=== PATIENT | male | born 1995 | race African-American/Black ===

== ENCOUNTER 2018-09-29 02:12 | Emergency (ER) | payer SELFPAY ==
[~2018-09-29] VITALS: Ht 180.3 cm; Wt 113.4 kg
--- NOTE | 2018-09-29 02:29 | Emergency Room Report ---
History of Present Illness General Chief Complaint: Eye Problems Source: Patient Present Illness HPI Patient is a 23-year-old male presents after increased left eye redness. Patient had onset of symptoms this morning. He denies any recent trauma. He denies any visual changes. He reports of increased tearing as well as increased crusting to his eye. He denies any contact lens use. He denies any other current locations of discomfort. He denies any sore throat or cough. He had not been vomiting or having diarrhea. Allergies: Coded Allergies: No Known Allergies (Unverified , 09/29/18) Patient History Past Medical History: see triage record Reviewed Nursing Documentation: PMH: Agreed; PSxH: Agreed Nursing Documentation-PMH Past Medical History: No Stated History Review of Systems All Other Systems: negative except mentioned in HPI Physical Exam Vital Signs Date Time Temp Pulse Resp B/P (MAP) Pulse Ox O2 Delivery O2 Flow Rate FiO2 09/29/18 02:13 98.4 66 14 131/81 (98) 96 Room Air General Appearance: well appearing, no apparent distress, alert, GCS 15, non- toxic Head: normocephalic, atraumatic ENT: hearing grossly normal, normal voice, other - left eye injection, watery discharge, no exudate Neck: full range of motion, supple Respiratory: no respiratory distress, speaking full sentences Cardiovascular #1: normal inspection Musculoskeletal: no calf tenderness Neurologic: normal inspection, alert, oriented x3, responsive, keg filler III-XII nml as tested, normal gait Psychiatric: mood/affect normal Skin: no rash Medical Decision Making Diagnostic Impression: Primary Impression: Conjunctivitis ER Course Patient presented for red eye. Differential diagnosis included but wasn't limited to glaucoma, iritis, corneal abrasion, bacterial conjunctivitis, viral conjunctivitis. Patient appears to have conjunctivitis. He will be given prescription for topical antibiotics. There is no definite secondary infection at this time. Patient was advised handwashing. He is advised to return if worse. Last Vital Signs Date Time Temp Pulse Resp B/P (MAP) Pulse Ox O2 Delivery O2 Flow Rate FiO2 09/29/18 02:13 98.4 66 14 131/81 (98) 96 Room Air Status: improved Disposition: HOME, SELF-CARE Condition: Stable Scripts No Active Prescriptions or Reported Meds Referrals: NOT CHOSEN IPA/,REFERRING (PCP) Dariel Traore MD Sep 29, 2018 02:29
[2018-09-29] MEDS ORDERED: GENTAK5 ML LEFT EYE (02:30)
--- NOTE | 2018-09-29 02:32 | NUR ---
ED Nurse Note: Walk-in patient with complaints of acute eye redness and irritation x 1 day.
--- NOTE | 2018-09-29 02:32 | NUR ---
ED Nurse Note: Patient cleared for discharge, A&Ox4, no s/s of acute distress. Patient departed with all belongings.
[2018-09-29 02:36] VITALS: BP 131/81
== END 2018-09-29 02:38 | disposition home or self-care (01) ==
LOC: EMR 02:26
DX: H10.9 Unspecified conjunctivitis (principal)
CPT/HCPCS: 99281

== ENCOUNTER 2019-01-24 21:53 | Emergency (ER) | payer SELFPAY ==
[~2019-01-24] VITALS: Ht 180.3 cm; Wt 104.3 kg
[~2019-01-24 21:53] MED LIST: GENTAK5 ML LEFT EYE
[2019-01-24 23:00] VITALS: BP 144/77
[2019-01-24] MEDS ORDERED: Oseltamivir 75mg cap ORAL ONE (23:30)
[2019-01-24] MEDS ORDERED: TAMIFLU75 MG ORAL (23:46)
[2019-01-24] MEDS ORDERED: IBUPROFEN600 MG ORAL (23:46)
[2019-01-24 23:58] VITALS: BP 118/68
--- NOTE | 2019-01-25 03:53 | Emergency Room Report ---
History of Present Illness General Chief Complaint: Flu Like Symptoms Source: Patient Present Illness HPI Patient is a 23-year-old male presents after increased fever and cough. Patient had onset of symptoms approximately 1 day prior to arrival. He reports having high fever. He had not been vomiting. He reports having increased cough as well as mild headache. Denies any diarrhea. He reports having some increased body aches. Allergies: Coded Allergies: No Known Allergies (Unverified , 09/29/18) Patient History Past Medical History: see triage record Reviewed Nursing Documentation: PMH: Agreed; PSxH: Agreed Nursing Documentation-PMH Past Medical History: No Stated History Review of Systems All Other Systems: negative except mentioned in HPI Physical Exam Vital Signs Date Time Temp Pulse Resp B/P (MAP) Pulse Ox O2 Delivery O2 Flow Rate FiO2 01/24/19 22:31 102.4 110 20 144/77 (99) 95 Room Air Sp02 EP Interpretation: reviewed, normal General Appearance: normal inspection, well appearing, no apparent distress, alert, GCS 15 Head: atraumatic ENT: normal ENT inspection, hearing grossly normal, normal voice Neck: normal inspection, full range of motion, supple, no bony tend Respiratory: normal inspection, lungs clear, normal breath sounds, no respiratory distress, no retraction, no wheezing Cardiovascular #1: regular rate, rhythm, no edema Gastrointestinal: normal inspection, normal bowel sounds, non tender, soft, no guarding, no hernia Genitourinary: no CVA tenderness Musculoskeletal: normal inspection, back normal, normal range of motion Neurologic: alert, motor strength/tone normal, order builder loader III-XII nml as tested, EOM palsy, oriented x3, responsive, speech normal, normal inspection Psychiatric: normal inspection, judgement/insight normal, mood/affect normal Medical Decision Making Diagnostic Impression: Primary Impression: Influenza-like illness ER Course Patient presented for cough. Differential diagnosis included but was not limited to bronchitis, pneumonia, pulmonary embolism, pericarditis, asthma, foreign body. patient does not appear to have any respiratory distress. He was given ibuprofen due to fever. He was noted to have some improvement. Patient given first dose of Tamiflu given the as well as like nature of his symptoms. Patient will be discharged home. He is advised to return if any worsening condition increased difficulty breathing or other concerns. Last Vital Signs Date Time Temp Pulse Resp B/P (MAP) Pulse Ox O2 Delivery O2 Flow Rate FiO2 12/5/19 00:00 102.4 01/24/19 23:58 98 18 118/68 96 Room Air Disposition: HOME, SELF-CARE Condition: Stable Scripts Ibuprofen* (MOTRIN*) 600 Mg Tablet 600 MG ORAL Q8H PRN for For Pain, #30 TAB 0 Refills Prov: Dariel Traore MD 01/24/19 Oseltamivir Phosphate (Tamiflu) 75 Mg Capsule 75 MG ORAL TWICE A DAY, #10 CAP Prov: Dariel Traore MD 01/24/19 Patient Instructions: Viral Respiratory Infection Dariel Traore MD Jan 25, 2019 03:52
== END 2019-01-24 23:58 | disposition home or self-care (01) ==
LOC: EMR 22:45
DX: J11.1 Influenza due to unidentified influenza virus with other respiratory manifestations (principal)
CPT/HCPCS: 99282